=== PATIENT | female | born 1970 | race Caucasian/White ===

== ENCOUNTER 2020-12-16 11:38 | Emergency (ER) | payer OTHER, SELFPAY ==
[2020-12-16] VITALS (7 sets, daily range): BP systolic 132–180; BP diastolic 79–114; PULSE 76–102; RESP 18; TEMP 36.6; O2SAT 100
--- NOTE | ~2020-12-16 | US_ITS ---
EXAMINATION: US pelvic complete w TV DATE: 12/16/2020 13:48 INDICATION: Dysfunctional uterine bleeding. TECHNIQUE: Multiple transabdominal and transvaginal sonographic images of the pelvis were obtained. COMPARISON: None. FINDINGS: TRANSABDOMINAL ULTRASOUND: The uterus measures 10.1 x 5.5 x 6.6 cm. There is no free fluid in the pelvis. TRANSVAGINAL ULTRASOUND: The endometrial complex measures 15 mm in thickness. The ovaries are not visualized. IMPRESSION: 1. Normal pelvis. Reviewed, dictated and finalized at location A. IMPRESSION: 1. Normal pelvis.
--- NOTE | 2020-12-16 12:32 | PC.NURSE ---
Attempts to collect blood x2 unsuccessful in triage.
--- NOTE | 2020-12-16 12:55 | PC.NURSE ---
called to room by pt for assistance - pt standing in room #10 with blood dripping onto floor and down her legs. States she is unable to get the net panties on without help. Assisted pt with panties and pad. Gave pt warm soapy washcloth to clean her legs, then warm washcloth, and then a towel to dry legs off. Assisted with putting gown on. Placed self on cot. Applied warm blanket. Pt states she is slightly lightheaded but has been since the vag bleed started. Informed pt's primary RN.
--- NOTE | 2020-12-16 13:02 | ED.FEMALEGU ---
HPI - Female Genitourinary General Chief complaint: Vaginal Bleeding Stated complaint: heavy vag bleeding Time Seen by Provider: 12/16/20 13:02 Source: patient, family and RN notes reviewed Mode of arrival: ambulatory Limitations: no limitations History of Present Illness HPI Narrative: Patient 50 years old white female presents with vaginal bleeding started 4 days ago, start as regular menstrual cycle, today got heavy with clots of blood clots and lower abdominal cramps. Last menstrual cycle almost 1 year ago. Patient denies any fever, chills, nausea, vomiting, lightheadedness or dizziness. Patient was told before that her irregular PEERIODS And AMMENOHREA secondary to menopause. Patient consumed 42 pads over the last 4 days Related Data Allergies Allergy/AdvReac Type Severity Reaction Status Date / Time Penicillins Allergy Unknown Rash Verified 12/16/20 13:14 Review of Systems Review of Systems: Narrative: CONSTITUTIONAL: Denies fever, chills, or sweats. EYES: Denies visual changes, redness, or discharge. ENT: Denies rhinorrhea, congestion, sore throat, or otalgia. CARDIOVASCULAR: Denies chest pain, palpitations, or edema. RESPIRATORY: Denies cough or dyspnea. GASTROINTESTINAL: Denies abdominal pain, nausea, vomiting, or diarrhea. GENITOURINARY: Denies dysuria or hematuria. SKIN: Denies rash or itching. MUSCULOSKELETAL: Denies back pain, joint pain, or myalgia. NEUROLOGIC: Denies headache, numbness, or weakness. PSYCHIATRIC: Denies anxiety or depression. PMFSH Family History Family History Grandparent Hypertension Family history of coronary artery disease Diabetes mellitus Social History Social History Alcohol intake: current Gender identity (if verbalized by the patient): Female Exam Narrative: Exam Narrative: General appearance: Well-developed, well-nourished Skin: Normal color Head: Normocephalic, nontraumatic Eyes: Clear conjunctiva ENT: Oropharynx normal, ears normal, nose normal Neck: Supple, nontender Chest and respiratory: Airway patent, no respiratory distress, no accessory muscle use Heart: Regular rate/rhythm Abdomen: Soft, nontender, no organomegaly, quiet bowel sounds Vascular: Normal peripheral pulses, normal capillary refill. Musculoskeletal: Normal range of motion, nontender back Neurologic: Alert and oriented ?3, L[employer]OGR[employer]ATE [employer]ER is normal as tested, no gross motor deficit : External Female Exam: normal external appearance Speculum Exam - Vagina: normal appearance of the vagina, normal palpation and vaginal bleeding (Mild vaginal bleeding, required for long Q-tip to dry the whole vagina) Speculum Exam - Cervix: normal appearance of the cervix Course Course Emergency Course: Stable Consultations Consultation #1: Dr. Jeffers call office for appointment Date: 12/16/20 Time: 16:31 Vital Signs Vital signs: Vital Signs Temperature 36.6 C 12/16/20 12:23 Pulse Rate 102 H 12/16/20 12:23 Respiratory Rate 18 12/16/20 12:23 Blood Pressure 180/114 H 12/16/20 12:23 Pulse Oximetry 100 12/16/20 12:23 Temperature 36.6 C 12/16/20 12:23 Pulse Rate 83 12/16/20 14:16 Respiratory Rate 18 12/16/20 12:23 Blood Pressure 167/80 H 12/16/20 14:16 Pulse Oximetry 100 12/16/20 12:23 MDM - Female Genitourinary MDM Narrative Medical decision making narrative: Dysfunctional uterine bleeding is my concern. Labs, orthostatic blood pressure, pelvic exam, pelvic ultrasound ordered. Further plan to follow Differential Diagnosis Differential diagnosis: Likely other (, menopause, uterine malignancy) Lab
[2020-12-16 13:06] LABS: Basophils Absolute Auto 0.1 K/mm3 (0.0-0.1); Basophils Percent Auto 0.9 % (0.2-1.2); Eosinophils Absolute Auto 0.3 K/mm3 (0-0.3); Eosinophils Percent Auto 3.9 % (0-4.4); Hematocrit 40.8 % (37.0-47.0); Hemoglobin 13.3 g/dL (12.0-15.0); Immature Granulocyte Absolute 0.02 K/mm3 (0.00-0.031); Immature Granulocyte Percent A 0.3 % (0-0.5); Lymphocytes Percent Auto 31.6 % (18.3-44.2); Mean Corpuscular HGB Conc 32.6 g/dl (32-36); Mean Corpuscular Hemoglobin 28.7 pg (26-34); Mean Corpuscular Volume 87.9 fl (80-100); Mean Platelet Volume 10.9 fl (7.4-10.4); Monocytes Absolute Auto 0.6 K/mm3 (0.1-0.6); Monocytes Percent Auto 7.9 % (2.6-8.5); Neutrophils Absolute Auto 3.9 K/mm3 (1.3-6.7); Neutrophils Percent Auto 55.4 % (45.5-73.1); Platelet Count Result 228 k/mm3 (150-375); Red Blood Count 4.64 M/mm3 (4.2-5.4); Red Cell Distribution Width 12.6 % (11.5-14.5)
--- NOTE | 2020-12-16 13:18 | PC.NURSE ---
Ultrasound taking this pt at this time. Will begin IV and medication upon return.
[2020-12-16 13:34] LABS: Beta HCG Quantitative < 2.39 mIU/ML
[2020-12-16] MEDS: SODIUM CHLORIDE 0.9% IV 1,000 ML 999 ML IV CONT (14:03)
[2020-12-16] MEDS: MORPHINE SULFATE (*CRX) 4 MG/ML INJ IV PUSH (14:05)
[2020-12-16] MEDS: ONDANSETRON INJ 4 MG/2 ML VIAL IV PUSH (14:05)
== END 2020-12-16 16:28 | disposition home or self-care (01) ==
PROVIDERS: Emergency Medicine; Emergency Provider Emergency Medicine; PCP Family Medicine
DX: N93.8 Other specified abnormal uterine and vaginal bleeding (principal)
CPT/HCPCS: 36415; 76830; 76856; 84702; 85025; 85461; 96361; 96374; 96375; 99284; J2270; J2405; J7030

== ENCOUNTER 2021-11-26 15:52 | Emergency (ER) | payer OTHER, SELFPAY ==
[2021-11-26] VITALS (9 sets, daily range): BP systolic 118–186; BP diastolic 82–91; PULSE 80–112; RESP 15–29; TEMP 36.8; O2SAT 98–100
--- NOTE | ~2021-11-26 | XR_ITS ---
EXAMINATION: XR chest 2V DATE: 11/26/2021 16:30 INDICATION: Chest pain. TECHNIQUE: Frontal and lateral views of the chest were obtained. COMPARISON: Chest single view 08/25/2017 FINDINGS: The chest demonstrates clear lungs without pneumonia, pleural effusion, or pneumothorax. Th e heart size is normal. IMPRESSION: 1. No acute cardiopulmonary disease. Reviewed, dictated and finalized at location A.
--- NOTE | 2021-11-26 15:57 | ECG_ITS ---
Measurements Intervals Stewart Rate: 104 P: 48 DE: 176 QRS: 28 QRSD: 84 T: 5 QT: 332 QTc: 438 Interpretive Statements SINUS TACHYCARDIA NONSPECIFIC T-WAVE ABNORMALITY BORDERLINE ECG NO PREVIOUS ECG AVAILABLE FOR COMPARISON Electronically Signed On 11-26-2021 16:23:24 CDT by Philip Sommers M.D.
[2021-11-26 16:23] LABS: Basophils Absolute Auto 0.1 K/mm3 (0.0-0.1); Basophils Percent Auto 0.7 % (0.2-1.2); Eosinophils Absolute Auto 0.2 K/mm3 (0-0.3); Eosinophils Percent Auto 3.5 % (0-4.4); Hematocrit 41.7 % (37.0-47.0); Hemoglobin 13.6 g/dL (12.0-15.0); Immature Granulocyte Absolute 0.02 K/mm3 (0.00-0.031); Immature Granulocyte Percent A 0.3 % (0-0.5); Lymphocytes Absolute Auto 2.43 K/mm3 (0.9-3.2); Lymphocytes Percent Auto 35.6 % (18.3-44.2); Mean Corpuscular HGB Conc 32.6 g/dl (32-36); Mean Corpuscular Hemoglobin 28.5 pg (26-34); Mean Corpuscular Volume 87.4 fl (80-100); Mean Platelet Volume 10.7 fl (7.4-10.4); Monocytes Absolute Auto 0.5 K/mm3 (0.1-0.6); Monocytes Percent Auto 7.6 % (2.6-8.5); Neutrophils Absolute Auto 3.6 K/mm3 (1.3-6.7); Neutrophils Percent Auto 52.3 % (45.5-73.1); Platelet Count Result 237 k/mm3 (150-375); Red Blood Count 4.77 M/mm3 (4.2-5.4); Red Cell Distribution Width 12.5 % (11.5-14.5); White Blood Count 6.8 K/mm3 (4.5-10.0)
[2021-11-26 16:32] LABS: INR 0.9; Prothrombin Time 12.2 Seconds (11.1-14.7)
[2021-11-26 16:33] LABS: Partial Thromboplastin Time 28.9 SECONDS (22.3-36.8)
[2021-11-26 16:37] LABS: Alanine Aminotransferase 27 U/L (4-35); Albumin Level 4.7 g/dL (3.5-5.1); Alkaline Phosphatase 96 U/L (38-126); Anion Gap 6 mmol/L (8-16); Aspartate Amino Transferase 32 U/L (14-36); Bilirubin,Total 0.3 mg/dL (0.2-1.3); Blood Urea Nitrogen 19 mg/dL (7-17); Calcium 9.3 mg/dL (8.4-10.2); Carbon Dioxide 29 mmol/L (22-30); Chloride 104 mmol/L (98-107); Estimated CRCL calculation 78 ml/min; Estimated Glomerular Filt Rate > 60; Glucose 97 mg/dL (65-110); Lipase 214 U/L (23-300); Potassium 3.7 mmol/L (3.4-5.0); Sodium 139 mmol/L (137-145)
[2021-11-26 16:49] LABS: Troponin I < 0.012 ng/mL (0.000-0.034)
[2021-11-26] MEDS: ASPIRIN 81 MG CHEWABLE TABLET 324 MG PO (18:26)
[2021-11-26 19:09] LABS: D Dimer 0.27 ug/mL (<0.48)
[2021-11-26] MEDS: diphenhydrAMINE HCl INJ 50 MG/ML VIAL 25 MG IV PUSH (19:25)
--- NOTE | 2021-11-26 19:39 | PC.NURSE ---
Pt updated on plan. Pt ambulated to restroom without difficulty. Patient has no other needs.
--- NOTE | 2021-11-26 19:47 | ED.CHESTPAIN ---
HPI - Chest Pain General Chief Complaint: Chest Pain Stated Complaint: palpitations, cp Time Seen by Provider: 11/26/21 18:12 Source: patient History of Present Illness HPI narrative: Patient presents with intermittent chest tightness over 1 week. Her symptoms radiate to her head and cause dizziness. She feels very anxious and feels like she is having a heart attack when these episodes happen. She is unable to identify any clear triggering events there is no significant changes with position or physical activity. Denies any nausea vomiting diaphoresis she denies any significant family history of cardiac disease. Denies smoking. She has not attempted to control her symptoms with any medications. Related Data Allergies Allergy/AdvReac Type Severity Reaction Status Date / Time Penicillins Allergy Unknown Rash Verified 12/16/20 13:14 Review of Systems Review of Systems: CONSTITUTIONAL: Denies fever, chills, or sweats. EYES: Denies visual changes, redness, or discharge. ENT: Denies rhinorrhea, congestion, sore throat, or otalgia. CARDIOVASCULAR: Denies chest pain, palpitations, or edema. RESPIRATORY: Denies cough or dyspnea. GASTROINTESTINAL: Denies abdominal pain, nausea, vomiting, or diarrhea. GENITOURINARY: Denies dysuria or hematuria. SKIN: Denies rash or itching. MUSCULOSKELETAL: Denies back pain, joint pain, or myalgia. NEUROLOGIC: Denies headache, numbness, dizziness, or weakness. PSYCHIATRIC: Denies anxiety or depression. All systems reviewed & are unremarkable except as noted in HPI and below PMFSH Family History Family History Grandparent Hypertension Family history of coronary artery disease Diabetes mellitus Social History Social History Alcohol intake: current Gender identity (if verbalized by the patient): Female Exam Narrative: GENERAL: Well-appearing, well-nourished, and in no acute distress. HEAD: Normocephalic, atraumatic. EYES: PERRLA and EOMI. ENT: Nares clear, no rhinorrhea or epistaxis. Mucous membranes moist. NECK: Supple. No masses. No JVD CHEST: Clear to auscultation. No respiratory distress. No wheezes rales or rhonchi HEART: Regular rate and rhythm. No murmur heard. Normal peripheral pulses. ABDOMEN: Soft, nontender, nondistended, normal active bowel sounds. EXTREMITIES: Normal range of motion. No edema. SKIN: Warm, dry, no rash. NEURO: No focal deficits. Alert and oriented x3. PSYCH: Normal mood and affect. Course Reevaluation(s) Reevaluation #1: Patient resting comfortably results thus far reviewed with patient. Delta troponin pending Date: 11/26/21 Time: 19:30 Reevaluation #2: Troponin negative patient is feeling much improved patient is comfortable outpatient plan. Date: 11/26/21 Time: 20:39 Vital Signs Vital signs: Vital Signs Temperature 36.8 C 11/26/21 16:07 Pulse Rate 112 H 11/26/21 16:07 Respiratory Rate 22 H 11/26/21 16:07 Blood Pressure 186/91 H 11/26/21 16:07 Pulse Oximetry 100 11/26/21 16:07 Temperature 36.8 C 11/26/21 16:07 Pulse Rate 80 11/26/21 20:53 Respiratory Rate 18 11/26/21 20:53 Blood Pressure 118/83 11/26/21 20:53 Pulse Oximetry 98 11/26/21 20:53 MDM - Chest Pain MDM Narrative Medical decision making narrative: H&P as above, vs with hypertension and tachycardia resolved with supportive therapies, pt looks clinically well, exam reassuring, labs clinically unremarkable, img without acute process, additional labs/img considered, symptomatic relief available as needed, on reevaluation pt continues to looks clinically well. Suspect anxiety low concern for ACS, PE, dissection, pneumothorax. plan to tx/monitor as op w/ pcm f/u findings/plan discussed with pt, pt agree/comfortable with plan, return precautions given Lab Data Result diagrams: 11/26/21 16:17 11/26/21 16:17 Labs: Lab Resul
[2021-11-26 19:58] LABS: Troponin I < 0.012 ng/mL (0.000-0.034)
== END 2021-11-26 20:54 | disposition home or self-care (01) ==
PROVIDERS: Emergency Provider Emergency Medicine; PCP Family Medicine
DX: R07.89 Other chest pain (principal); R00.0 Tachycardia, unspecified; R94.31 Abnormal electrocardiogram [ECG] [EKG]
CPT/HCPCS: 36415; 71046; 80053; 83690; 84484; 85025; 85380; 85610; 85730; 93005; 96374; 99284; A9270; J1200

== ENCOUNTER 2022-08-28 11:12 | Emergency (ER) | payer BC, SELFPAY ==
[2022-08-28 11:37] VITALS: BP 147/89; PULSE 83; RESP 18; TEMP 36.8; O2SAT 98
--- NOTE | 2022-08-28 12:08 | ED.GENADULT ---
HPI - General Adult General Chief complaint: Upper Respiratory Infection Stated complaint: Cough,Congestion,Wheezing Time Seen by Provider: 08/28/22 12:08 Source: patient Mode of arrival: ambulatory Limitations: no limitations History of Present Illness HPI narrative: 52-year-old female patient presents to the [facility] with complaints of URI symptoms for about 2 weeks now. Patient states this past she did spike a fever and had some body aches and chills. Patient states her main complaint today is that she has been having an ongoing cough. Patient states last night the cough woke her up out of her sleep. Patient states she feels like at times she might be wheezing. Denies any fevers today. Denies any chest pain or shortness of breath currently but states that with the cough does hit that sometimes she does feel short of breath. Denies any abdominal pain, nausea, vomiting or diarrhea. Related Data Home Medications Medication Instructions Recorded Confirmed escitalopram oxalate 5 mg tablet 5 mg PO DAILY 08/28/22 08/28/22 rosuvastatin 10 mg tablet 10 mg PO DAILY 08/28/22 08/28/22 Allergies Allergy/AdvReac Type Severity Reaction Status Date / Time Penicillins AdvReac Mild Rash Verified 08/28/22 11:34 Review of Systems Review of Systems: CONSTITUTIONAL: Denies fever, chills, or sweats. EYES: Denies visual changes, redness, or discharge. ENT: Positive rhinorrhea, congestion, sore throat, denies otalgia. CARDIOVASCULAR: Denies chest pain, palpitations, or edema. RESPIRATORY: positive cough , intermittent dyspnea. GASTROINTESTINAL: Denies abdominal pain, nausea, vomiting, or diarrhea. GENITOURINARY: Denies dysuria or hematuria. SKIN: Denies rash or itching. MUSCULOSKELETAL: Denies back pain, joint pain, or myalgia. NEUROLOGIC: Denies headache, numbness, or weakness. PSYCHIATRIC: Denies anxiety or depression. [facility] Family History Family History Grandparent Hypertension Family history of coronary artery disease Diabetes mellitus Social History Social History Alcohol intake: current Gender identity (if verbalized by the patient): Female Comments At the time of my signature I agree with nursing past medical history, surgical, social, and family history. There is no relevant family history pertinent to the presenting complaint. Exam Narrative: GENERAL: Well-appearing, well-nourished, and in no acute distress. HEAD: Normocephalic, atraumatic. EYES: PERRLA and EOMI. ENT: Nares clear, no rhinorrhea or epistaxis. Mucous membranes moist. posterior pharynx with no erythema, tonsillar enlargement, exudates or lesions present. Bilateral TMs are clear with no erythema Or foreign bodies to the canal NECK: Supple. No lymphadenopathy CHEST: Clear to auscultation. No respiratory distress. patient able to talk in clear complete sentences. HEART: Regular rate and rhythm. No murmur heard. Normal peripheral pulses. ABDOMEN: Soft, nontender, nondistended, normal active bowel sounds. EXTREMITIES: Normal range of motion. No edema. SKIN: Warm, dry, no rash. NEURO: No focal deficits. Alert and oriented x3. Course Course Level of Care: Express Care Visit Vital Signs Vital signs: Vital Signs Temperature 36.8 C 08/28/22 11:37 Pulse Rate 83 08/28/22 11:37 Respiratory Rate 18 08/28/22 11:37 Blood Pressure 147/89 H 08/28/22 11:37 Pulse Oximetry 98 08/28/22 11:37 Oxygen Delivery Room Air 08/28/22 11:37 Temperature 36.8 C 08/28/22 11:37 Pulse Rate 83 08/28/22 11:37 Respiratory Rate 18 08/28/22 11:37 Blood Pressure 147/89 H 08/28/22 11:37 Pulse Oximetry 98 08/28/22 11:37 Oxygen Delivery Room Air 08/28/22 11:37 Vital signs reviewed. The patient has been informed that they may have pre-hypertension or Hypertension based on a BP reading in the department. I recomm
== END 2022-08-28 12:25 | disposition home or self-care (01) ==
PROVIDERS: Emergency Provider Nurse Practitioner Family; PCP Family Medicine
DX: J20.8 Acute bronchitis due to other specified organisms (principal); E78.00 Pure hypercholesterolemia, unspecified; F41.9 Anxiety disorder, unspecified; F32.A Depression, unspecified
CPT/HCPCS: 99213; G0463

== ENCOUNTER 2023-09-08 18:13 | Emergency (ER) | payer OTHER, SELFPAY ==
[2023-09-08 18:31] VITALS: BP 154/86; PULSE 90; RESP 18; TEMP 36.3; O2SAT 98
--- NOTE | 2023-09-08 18:43 | ED.URI ---
HPI - URI/Sore Throat General Chief Complaint: Upper Respiratory Infection Stated Complaint: Sinus Time Seen by Provider: 09/08/23 18:35 Source: patient Mode of arrival: ambulatory Limitations: no limitations History of Present Illness HPI Narrative: Chrystal is a 53-year-old female patient presenting to the clinic today with complaints of nasal congestion, headache, feeling feverish, and sore throat x2 days. Denies any chest pain or shortness of breath. MD elicited complaint: sore throat and nasal congestion Related Data Allergies Allergy/AdvReac Type Severity Reaction Status Date / Time Penicillins AdvReac Mild Rash Verified 09/08/23 18:17 Review of Systems Review of Systems: Pertinent positives per HPI. Patient denies any fever, chills, rash, headache, visual changes, dizziness, shortness of breath, chest pain, palpitations, nausea, vomiting, diarrhea, constipation, abdominal pain, or any urinary issues. [facility] Past Medical History Medical History Anxiety Essential (primary) hypertension Hypercholesterolemia Obesity Surgical History Surgical History History of section 2000 History of D&C 2006 History of endometriosis 1999 Family History Family History Grandparent Hypertension Family history of coronary artery disease Diabetes mellitus Breast cancer Mother Anxiety Heart disease Father No problems noted. Social History Social History Smoking status: Never smoker Alcohol intake: current Substance use: never Substance use type: does not use Lack of Transportation: No Lack of Food: Never True Current Housing: I Have Housing Concerned About Future Housing: No Difficulty Paying Gas/Electric Bills: No Difficulty Paying for Meds: No Currently Unemployed: No Education: High School Diploma/GED Difficulty w/ Childcare or Family Care: No Living arrangements: with family Occupation/Education: occupation Gender identity (if verbalized by the patient): Female Sexual Orientation (if Verbalized by the Patient): Straight or Heterosexual Comments At the time of my signature, I reviewed and agree with the nursing past medical, surgical, social, and family history. There is no relevant family history pertinent to the patient complaint. Exam Narrative: General: Well-developed, well nourished, in no apparent distress Head: Normocephalic, atraumatic Eyes: Pupils equally round and reactive to light bilaterally, EOM intact, sclera and conjunctive clear, no discharge, lids normal Ears: TMs intact and clear, ear canals clear, no drainage, grossly hearing normal. Nose: Nares patent, no discharge, no inflammation, no sinus tenderness. Mouth: Oral pharynx without lesions or masses, good dentition, MMM. Neck: Supple, trachea midline, no enlargement of anterior or posterior cervical nodes, no thyroid masses or goiter palpable. Cardio: Regular rate and rhythm, s1 and s2 normal, no murmur appreciated. Resp: Clear to auscultation bilaterally, no rhonchi, rales, wheezing or rubs Course Course Emergency Course: Portions of this record may have been created with voice recognition software. Level of Care: Express Care Visit Vital Signs Vital signs: Vital Signs Temperature 36.3 C L 09/08/23 18:31 Pulse Rate 90 09/08/23 18:31 Respiratory Rate 18 09/08/23 18:31 Blood Pressure 154/86 H 09/08/23 18:31 Pulse Oximetry 98 09/08/23 18:31 Oxygen Delivery Room Air 09/08/23 18:31 Temperature 36.3 C L 09/08/23 18:31 Pulse Rate 90 09/08/23 18:31 Respiratory Rate 18 09/08/23 18:31 Blood Pressure 154/86 H 09/08/23 18:31 Pulse Oximetry 98 09/08/23 18:31 Oxygen Delivery Room Air 09/08/23 18:3
== END 2023-09-08 18:50 | disposition home or self-care (01) ==
PROVIDERS: Emergency Provider Nurse Practitioner Family; PCP Family Medicine
DX: B34.9 Viral infection, unspecified (principal); J06.9 Acute upper respiratory infection, unspecified; J02.9 Acute pharyngitis, unspecified; Z20.822 Contact with and (suspected) exposure to COVID-19; I10 Essential (primary) hypertension; E78.00 Pure hypercholesterolemia, unspecified; E66.9 Obesity, unspecified; Z68.32 Body mass index [BMI] 32.0-32.9, adult; F41.9 Anxiety disorder, unspecified
CPT/HCPCS: 87081; 87426; 87804; 87880; 99213; C9803; G0463